=== PATIENT | male | born 2000 | race Two or more races ===

== ENCOUNTER 2024-07-21 13:20 | Emergency (ER) | payer MEDICAID ==
[~2024-07-21] VITALS: Ht 185.4 cm; Wt 68.6 kg
--- NOTE | 2024-07-21 13:52 | ED.PDOC ---
SOB-HPI HPI Comments 24 year old male presents to the ED with chief complaint of SOB. Patient reports that he has been experiencing SOB with associated wheezing and coughing for the past 2 days. Patient relays that he has history of asthma, however, he has no inhaler at home currently. Patient denies any fever, chills, chest pain, N/V, hemoptysis, headache, or dizziness. Chief Complaint: Asthma Time Seen by MD: 13:50 Reviewed notes: Nurses Notes, Medications, Allergies Information Source: Patient Mode of Arrival: Ambulatory Severity: Moderate Timing: Days Duration: Since onset Context: At Rest PE Risk Factors: None History of: Asthma Prehospital treatment: None Modifying Factors: Nothing Associated Signs and Symptoms: Cough If cough with SOB: Non-Productive Past Medical History PAST MEDICAL HISTORY: Asthma Surgical History: Denies all surgeries Family History Family History: Reviewed,noncontributory to illness, Family hx of DM, Family hx of heart dariusz Social History Smoker: Non-Smoker Alcohol: Occasionally Drugs: Marijuana Lives In: Home Constitutional: denies: chills, diaphoresis, fatigue, fever, malaise, sweats, weakness, others EENTM: denies: blurred vision, double vision, ear bleeding, ear discharge, ear drainage, ear pain, ear ringing, eye pain, eye redness, hearing loss, mouth pain, mouth swelling, nasal discharge, nose bleeding, nose congestion, nose pain, photophobia, tearing, throat pain, throat swelling, voice changes, others Respiratory: reports: cough, shortness of breath, wheezing; denies: hemoptysis, orthopnea, SOB at rest, SOB with excertion, stridor, others Cardiovascular: denies: chest pain, dizzy spells, diaphoresis, Dyspnea on exertion, edema, irregular heart beat, left arm pain, lightheadedness, pa lpitations, PND, syncope, others Gastrointestinal: denies: abdomen distended, abdominal pain, blood streaked bowels, constipated, diarrhea, dysphagia, difficulty swallowing, hematemesis, melena, nausea, poor appetite, poor fluid intake, rectal bleeding, rectal pain, vomiting, others Genitourinary: denies: burning, dysuria, flank pain, frequency, hematuria, incontinence, penile discharge, penile sore, pain, testicle pain, testicle swelling, urgency, others Neurological: denies: dizziness, fainting, headache, left sided numbness, left sided weakness, numbness, paresthesia, pre-existing deficit, right sided numbness, right sided weakness, seizure, speech problems, tingling, tremors, weakness, others Musculoskeletal: denies: back pain, gout, joint pain, joint swelling, muscle pain, muscle stiffness, neck pain, others Integumetry: denies: bruises, change in color, change in hair/nails, dryness, laceration, lesions, lumps, rash, wounds, others Allergic/Immunocompromised: denies: Difficulty Healing, Frequent Infections, Hives, Itching, others Hematologic/Lymphatic: denies: anemia, blood clots, easy bleeding, easy br uising, swollen glands, others Endocrine: denies: excessive hunger, excessive sweating, excessive thirst, excessive urination, flushing, intolerance to cold, intolerance to heat, unexplained weight gain, unexplained weight loss, others Psychiatric: denies: anxiety, bipolar disorder, depression, hopeless, panic disorder, schizophrenia, sleepless, suicidal, others All Other Systems: Reviewed and Negative Physical Exam General Appearance: Moderate Distress HEENT: Normal ENT Inspection, Pharynx Normal, TMs Normal Neck: Full Range of Motion, Non-Tender, Normal, Normal Inspection Respiratory: Chest Non-Tender, No Accessory Muscle Use, Respiratory Distress, Wheezing Cardiovascular: No Edema, No JVD, No Murmur, No Gallop, Normal Peripheral Pulses, Regular Rate/Rhythm Breast Exam: Deferred Gastrointestinal: No Organomegaly, Non Tender, No Pulsatile Mass, Normal Bowel Sounds, Soft Genitalia: Deferred Pelvic: Deferred Rectal: Deferred Extremities: No calf tenderness, Normal capillary refill, Normal inspection, Normal range of motion, Non-tender, No pedal edema Musculoskeletal : Apperance: Normal Neurologic: Alert, medical recruiter II-XII nml as Tested, No Motor Deficits, Normal Affect, Normal Mood, No Sensory Deficits Cerebellar Function: Normal Reflexes: Normal Skin: Dry, Normal Color, Warm Lymphatic: No Adenopathy Was a procedure done? Was a procedure done?: No Differential Dx Differential Diagnosis: Asthma, Bronchitis, Pneumonia X-Ray, Labs, Meds, VS Vital Signs Date Time Temp Pulse Resp B/P (MAP) Pulse Ox O2 Delivery O2 Flow Rate FiO2 07/21/24 15:29 97.6 80 16 158/89 (112) 94 97.6 07/21/24 14:10 18 96 Room Air* 0 21 07/21/24 13:52 16 95 Room Air* 0 21 07/21/24 13:49 98.1 81 16 151/95 (113) 95 98.1 Current Medications Medications (Trade) Dose Ordered Sig/Michael Route Start Time Stop Time Status Last Admin Ipratropium [place] (Atrovent Medneb) 1 mg ONCE ONCE [facility] 07/21/24 14:00 07/21/24 14:01 DC 07/21/24 14:09 Albuterol (Ventolin Medneb) 20 mg ONCE ONCE [facility] 07/21/24 14:00 07/21/24 14:01 DC 07/21/24 14:08 The patient was given a breathing treatment of albuterol and Atrovent. The chest x-ray shows: IMPRESSION: Reactive airways disease and pulmonary hyperexpansion. The lungs are otherwise clear. At this time, the patient was given prednisone The patient was being discharged with a diagnosis of asthma exacerbation The patient was given a Medrol Dosepak as well as an inhaler The patient will return to the emergency department's the condition worsens. Images Reviewed?: Images reviewed and evaluated by me Time of 1ST Reevaluation: 15:35 Reevaluation 1ST: Unchanged Patient Education/Counseling: Diagnosis, Treatment, Prognosis, Need For Follow Up Family Education/Counseling: No Family Present Additional Information -Reviewed patient's previous visit(s): None - The following tests were ordered, and results were reviewed by me: None - Additional information was gathered from interviewing the following independent Historian: None - I reviewed and agreed with the following test results read by other provider: None - I discussed treatments and results with medical personnel and: patient Comprehensive systems review obtained and negative except for what is stated in the HPI. Departure 1 Departure Time of Disposition: 15:36 Impression: Primary Impression: Asthma exacerbation Qualified Codes: J45.41 - Moderate persistent asthma with (acute) exacerbation Disposition: HOME / SELF CARE / HOMELESS Condition: Fair e-Prescriptions Methylprednisolone (Medrol Dosepak) 4 Mg Pedro 4 MG PO UD, #21 TAB UAD Prov: JULY PULIDO MD 07/21/24 Discharged With: Self Critical Care Note Critical Care Time?: No Stability Stability form required: No Heart Score Heart Score: Heart Score Response (Comments) Value History N/A 0 EKG N/A 0 Age N/A 0 Risk Factors N/A 0 Troponin N/A 0 Total 0 I personally scribed for JULY PULIDO MD ([email or web address]) on 07/21/24 at 13:52. Electronically submitted by Amari Alegre ([email or web address]). I personally scribed for JULY PULIDO MD ([email or web address]) on 07/21/24 at 13:52. Electronically submitted by Amari Alegre ([email or web address]). I personally scribed for JULY PULIDO MD ([email or web address]) on 07/21/24 at 13:53. Electronically submitted by Amari Alegre ([email or web address]). JULY PULIDO MD Jul 21, 2024 13:52
[2024-07-21] MEDS: ALBUTEROL SULF 2.5 MG/0.5ML(0.5%) NEB SOLN HHN ONE (14:08)
[2024-07-21] MEDS: IPRATROPIUM BROM 0.5 MG/2.5ML INH SOL HHN ONE (14:09)
--- NOTE | 2024-07-21 15:21 | DVH ---
EXAM: XY CHEST TWO VIEWS ROUTINE HISTORY: cough COMPARISON: None TECHNIQUE: Frontal and lateral views of the chest were performed. FINDINGS: No pneumothorax, pulmonary edema, pleural effusions, or consolidative infiltrates. The lungs are hype rexpanded with increased retrosternal airspace on the lateral film. There is moderate central peribr onchial thickening. The heart is not enlarged. No fractures are identified about the bony thorax. Th ere is mild thoracolumbar S shaped scoliosis. IMPRESSION: Reactive airways disease and pulmonary hyperexpansion. The lungs are otherwise clear.
[2024-07-21 15:29] VITALS: BP 158/89; PULSE 80; RESP 16; TEMP 97.6; O2SAT 94
[2024-07-21] MEDS ORDERED: METH4PAK PO (15:34)
[2024-07-21] MEDS ORDERED: ALBUAER3 IN (15:37)
[2024-07-21] MEDS: predniSONE 20 MG TAB PO ONE (15:37)
== END 2024-07-21 15:43 | disposition home or self-care (01) ==
LOC: ER 13:20
DX: J45.901 Unspecified asthma with (acute) exacerbation (principal); F12.90 Cannabis use, unspecified, uncomplicated
CPT/HCPCS: 71046; 94644; 99285; J7512

== ENCOUNTER 2024-08-15 04:39 | Emergency (ER) | payer MEDICAID ==
[~2024-08-15] VITALS: Ht 185.4 cm; Wt 70.3 kg
[~2024-08-15 04:39] MED LIST: ALBUAER3 IN; METH4PAK PO
--- NOTE | 2024-08-15 05:10 | ED.PDOC ---
SOB-HPI Time Seen by MD: 04:53 Primary Care Provider: NONE Reviewed notes: Nurses Notes, Medications, Allergies Information Source: Patient Past Medical History PAST MEDICAL HISTORY: Asthma Surgical History: Denies all surgeries Family History Family History: Reviewed,noncontributory to illness, Family hx of DM, Family hx of heart dariusz Social History Smoker: Non-Smoker Alcohol: Occasionally Drugs: Marijuana Lives In: Home Constitutional: denies: chills, diaphoresis, fatigue, fever, malaise, sweats, weakness, others EENTM: denies: blurred vision, double vision, ear bleeding, ear discharge, ear drainage, ear pain, ear ringing, eye pain, eye redness, hearing loss, mouth pain, mouth swelling, nasal discharge, nose bleeding, nose congestion, nose pain, photophobia, tearing, throat pain, throat swelling, voice changes, others Respiratory: reports: shortness of breath, wheezing; denies: cough, hemoptysis, orthopnea, SOB at rest, SOB with excertion, stridor, others Cardiovascular: denies: chest pain, dizzy spells, diaphoresis, Dyspnea on exertion, edema, irregular heart beat, left arm pain, lightheadedness, palpitations, PND, syncope, others Gastrointestinal: denies: abdomen distended, abdominal pain, blood streaked bowels, constipated, diarrhea, dysphagia, difficulty swallowing, hematemesis, melena, nausea, poor appetite, poor fluid intake, rectal bleeding, rectal pain, vomiting, others Genitourinary: denies: burning, dysuria, flank pain, frequency, hematuria, incontinence, penile discharge, penile sore, pain, testicle pain, testicle swelling, urgency, others Neurological: denies: dizziness, fainting, headache, left sided numbness, left sided weakness, numbness, paresthesia, pre-existing deficit, right sided numbness, right sided weakness, seizure, speech problems, tingling, tremors, weakness, others Musculoskeletal: reports: back pain; denies: gout, joint pain, joint swelling, muscle pain, muscle stiffness, neck pain, others Integumetry: denies: bruises, change in color, change in hair/nails, dryness, laceration, lesions, lumps, rash, wounds, others Allergic/Immunocompromised: denies: Difficulty Healing, Frequent Infections, Hives, Itching, others Hematologic/Lymphatic: denies: anemia, blood clots, easy bleeding, easy bruising, swollen glands, others Endocrine: denies: excessive hunger, excessive sweating, excessive thirst, excessive urination, flushing, intolerance to cold, intolerance to heat, unexplained weight gain, unexplained weight loss, others Psychiatric: denies: anxiety, bipolar disorder, depression, hopeless, panic disorder, schizophrenia, sleepless, suicidal, others Physical Exam General Appearance: No Apparent Distress, Normal HEENT: Normal ENT Inspection, Pharynx Normal, TMs Normal Neck: Full Range of Motion, Non-Tender Respiratory: No Respiratory Distress, Wheezing (Inspiratory and expiratory diffuse) Cardiovascular: No Edema, No JVD, No Murmur, No Gallop, Normal Peripheral Pulses, Regular Rate/Rhythm Breast Exam: Deferred Gastrointestinal: No Organomegaly, Non Tender, No Pulsatile Mass, Normal Bowel Sounds, Soft Genitalia: Deferred Pelvic: Deferred Rectal: Deferred Extremities: Normal capillary refill, Normal inspection, Normal range of motion, Non-tender, No pedal edema Musculoskeletal : Apperance: Normal Neurologic: Alert, hearing officer II-XII nml as Tested, No Motor Deficits, Normal Affect, Normal Mood, No Sensory Deficits Cerebellar Function: Normal Reflexes: Normal Skin: Dry, Normal Color, Warm Lymphatic: No Adenopathy Was a procedure done? Was a procedure done?: No Differential Dx Differential Diagnosis: Asthma, Bronchitis, Pneumonia, URI X-Ray, Labs, Meds, VS Vital Signs Date Time Temp Pulse Resp B/P (MAP) Pulse Ox O2 Delivery O2 Flow Rate FiO2 08/15/24 05:26 14 98 Room Air* 0 21 08/15/24 05:09 19 93 Room Air* 0 21 08/15/24 05:09 98.1 115 19 140/97 (111) 93 98.1 Current Medications Medications (Trade) Dose Ordered Sig/Michael Route Start Time Stop Time Status Last Admin Albuterol (Ventolin Medneb) 5 mg ONCE ONCE NEB 08/15/24 05:15 08/15/24 05:16 DC 08/15/24 05:23 Ipratropium [place] (Atrovent Medneb) 0.5 mg ONCE ONCE NEB 08/15/24 05:15 08/15/24 05:16 DC 08/15/24 05:23 Methylprednisolone Sodium Succinate (Solu Medrol) 125 mg ONCE ONCE IM 08/15/24 05:15 08/15/24 05:16 DC 08/15/24 05:21 X-Ray, Labs, Meds, VS Comment PATIENT GIVEN SOLU-MEDROL 125 MG IM AND DUO NEB REPORTS IMPROVEMENT IN SYMPTOMS REQUESTING DISCHARGE AT THIS TIME. LUNG SOUNDS CLEAR EQUAL BILATERAL POST BREATHING TREATMENT. PATIENT STATES HAS NOT APPOINTMENT ON THE WITH HIS PRIMARY CARE PROVIDER ADVISED TO GET IN SOONER. PATIENT STATES HE HAS HIS ALBUTEROL WITH HIM RESCUE INHALER DOES NOT NEED ANY REFILLS AT THIS TIME. ER RETURN PRECAUTIONS GIVEN PATIENT INDICATES UNDERSTANDING AGREES WITH DISCHARGE PLAN OF CARE. Time of 1ST Reevaluation: 04:55 Reevaluation 1ST: Unchanged Time of 2ND Reevaluation: 05:49 Reevaluation 2ND: Improved Patient Education/Counseling: Diagnosis, Treatment, Prognosis, Need For Follow Up Family Education/Counseling: No Family Present Departure 1 Departure Time of Disposition: 05:47 Impression: Primary Impression: Acute asthma Disposition: 01 HOME / SELF CARE / HOMELESS Condition: Stable Discharged With: Self Critical Care Note Critical Care Time?: No Stability Stability form required: No Heart Score Heart Score: Heart Score Response (Comments) Value History N/A 0 EKG N/A 0 Age <45 0 Risk Factors N/A 0 Troponin N/A 0 Total 0 DAVID LOZANO August 15, 2024 05:10
[2024-08-15] MEDS: methylPREDNISolone SOD SUCC 125 MG/2 ML VL IM ONE (05:21)
[2024-08-15] MEDS: IPRATROPIUM BROM 0.5 MG/2.5ML INH SOL NEB ONE (05:23)
[2024-08-15] MEDS: ALBUTEROL SULF 2.5 MG/0.5ML(0.5%) NEB SOLN NEB ONE (05:23)
[2024-08-15 06:00] VITALS: BP 140/97; PULSE 115; RESP 19; TEMP 98.1; O2SAT 93
== END 2024-08-15 06:20 | disposition home or self-care (01) ==
LOC: ER 04:39
DX: J45.909 Unspecified asthma, uncomplicated (principal); F12.90 Cannabis use, unspecified, uncomplicated
CPT/HCPCS: 94640; 96372; 99283; J2919